=== PATIENT | female | born 1965 ===

== ENCOUNTER 2017-01-02 11:14 | Emergency (ER) | payer MEDICARE ==
--- NOTE | 2017-01-02 14:40 | XRay Report ---
RIGHT KNEE, 2 views: History: Right knee injury. The bony architecture is intact without evidence of fracture or dislocation. No significant soft tissue abnormality is seen. IMPRESSION: Normal right knee.
[2017-01-02] MEDS ORDERED: TYLENOL PO ONE (16:58)
[2017-01-02 17:53] VITALS: BP 129/97
--- NOTE | 2017-01-04 07:32 | Emergency Department Report ---
Entered by JESSICA EVERETT, acting as scribe for NATALI MUSTAFA NP. ED Lower Extremity HPI - General Chief Complaint: Extremity Injury, Lower Stated Complaint: RT KNEE/LEG PAIN Time Seen by Provider: 01/02/17 16:15 Source: patient Mode of arrival: Ambulatory Limitations: No Limitations - History of Present Illness Initial Comments: This is a 51-year-old female nontoxic or ill appearance with no acute signs a distress but complains of right knee pain status post fall that occurred 2 weeks ago. Patient stated was walking down the steps and she tripped and fell on her right knee. Patient describes pain as aching. Denies numbness, tingling, chest pain, shortness of breath, redness, fever or chills. Patient denies any calf tenderness. Patient stated she took [place] 1 last night that relieved her pain. Patient stated ibuprofen does not relieve her pain. Patient allergies include morphine, NSAIDs, and prednisone. MD Complaint: knee injury (right) -: week(s) (2) Injury: Knee: Right Type of Injury: other (impact after a fall) Place: home Severity: mild Severity scale (0 -10): 4 Improves With: other (hydrocodon) Worsens With: weight bearing, movement, palpation Context: fall Associated Symptoms: able to partially bear weight. denies: snap/pop sensation , swelling, numbness, tingling, unable to bear weight - Related Data Previous Rx's Medication Instructions Recorded Last Taken Type Diazepam Tab [Valium] 5 mg PO TID PRN #12 tablet 10/02/15 Unknown Rx Acetaminophen [Acetaminophen ER 650 mg PO Q8HR PRN 7 Days 01/02/17 Unknown Rx TAB] HYDROcodone/APAP 7.5-325 [[place] 1 each PO Q8HR PRN #12 tablet 01/02/17 Unknown Rx 7.5/325] Allergies Allergy/AdvReac Type Severity Reaction Status Date / Time morphine Allergy Shortness Verified 01/02/17 12:41 of Breath NSAIDS (Non-Steroidal Allergy Swelling Verified 10/01/15 22:07 Anti-Inflamma pramipexole di-HCl Allergy Unknown Verified 10/01/15 22:07 [From Mirapex] prednisone Allergy Swelling Verified 10/01/15 22:07 ED Review of Systems Comment: All other systems reviewed and negative Constitutional: denies: chills, fever Respiratory: denies: shortness of breath Cardiovascular: denies: chest pain Gastrointestinal: denies: abdominal pain, nausea, vomiting, diarrhea Musculoskeletal: other (right knee pain) Neurological: denies: headache, weakness, numbness, paresthesias, confusion, abnormal gait, other (tingling) ED Past Medical Hx - Past Medical History Hx Hypertension: Yes Hx Psychiatric Treatment: Yes (anxiety) Additional medical history: Parkinsons - Surgical History Hx Cholecystectomy: Yes Hx Appendectomy: Yes - Social History Smoking Status: Never Smoker Substance Use Type: None - Medications Home Medications: Home Medications Medication Instructions Recorded Confirmed Last Taken Type Diazepam Tab [Valium] 5 mg PO TID PRN #12 tablet 10/02/15 Unknown Rx Acetaminophen [Acetaminophen ER 650 mg PO Q8HR PRN 7 Days 01/02/17 Unknown Rx TAB] HYDROcodone/APAP 7.5-325 [[place] 1 each PO Q8HR PRN #12 tablet 01/02/17 Unknown Rx 7.5/325] ED Physical Exam - General Limitations: No Limitations General appearance: alert, in no apparent distress - Head Head exam: Present: atraumatic, normocephalic - Eye Eye exam: Present: normal appearance, PERRL, EOMI - ENT ENT exam: Present: normal exam, mucous membranes moist, TM's normal bilaterally , normal external ear exam - Neck Neck exam: Present: normal inspection, full ROM. Absent: tenderness, meningismus, lymphadenopathy - Respiratory Respiratory exam: Present: normal lung sounds bilaterally. Absent: respiratory distress - Cardiovascular Cardiovascular Exam: Present: regular rate, normal rhythm, normal heart sounds. Absent: systolic murmur, diastolic murmur, rubs, gallop - GI/Abdominal GI/Abdominal exam: Present: soft, normal bowel sounds. Absent: tenderness, guarding, rebound - Extremities Exam Extremities exam: Present: normal inspection, full ROM, normal capillary refill , joint swelling, other (right knee TTP, full extension of right knee). Absent : pedal edema, calf tenderness - Back Exam Back exam: Present: normal inspection, full ROM. Absent: tenderness, CVA tenderness (R), CVA tenderness (L) - Neurological Exam Neurological exam: Present: alert, oriented X3, CN II-XII intact, normal gait ( with pain) - Psychiatric Psychiatric exam: Present: normal affect, normal mood - Skin Skin exam: Present: warm, normal color. Absent: erythema, other (ulceration or induration) ED Course Vital Signs 01/02/17 12:42 Temperature 98.0 F Pulse Rate 104 H Respiratory 20 Rate Blood Pressure 144/80 O2 Sat by Pulse 100 Oximetry - Reevaluation(s) Reevaluation #1: 01/02/17 17:51 Patient stated has a little relief of pain with a rating of a 7/10. ED Lower Extremity MDM - Medical Decision Making ED course: This is a 51-year-old female that presents with left knee strain 1- after physical exam, patient received acetaminophen 650 mg ED for pain. Patient also requested for knee immobilizer. 2- x-ray was obtained and dictated by Dr. Roberts: Normal right knee. The bony architecture is intact without evidence of fracture or dislocation. No significant soft tissue abnormality is seen. 3- I instructed patient to follow-up with an orthopedic doctor as soon as possible for further testing and possibility of getting an MRI. 4- at the time of discharge patient received acetaminophen 650 mg to take for pain and Guilford 7.5 mg. Patient was instructed to start with acetaminophen and if pain is not relieved me proceed taken [place]. Patient also was instructed not to operate machinery while taken Gu[place] due to sedation. 5- at the time of discharge the patient does not seem toxic or ill in appearance. No signs of distress noted. Patient agrees to discharge treatment plan. No further questions noted by the patient. 6- crutches has been given to the patient and educated by the nurse. ED Disposition Clinical Impression: Strain of knee and leg, left Qualifiers: Encounter type: initial encounter Qualified Code(s): S86.912A - Strain of unspecified muscle(s) and tendon(s) at lower leg level, left leg, initial encounter Disposition: DISCHARGED TO HOME OR SELFCARE Is pt being admited?: No Does the pt Need Aspirin: No Condition: Stable Instructions: Knee Pain (ED), Knee Immobilizer (ED), Crutch Instructions (ED) Additional Instructions: Follow-up with an orthopedic doctor as soon as possible for further testing such as an MRI. If symptoms worsen such as calf pain or tenderness, redness, fever, chills, swelling to the extremity before back to emergency room as soon as possible. Follow-up with your primary care doctor in 3-5 days. Take acetaminophen as prescribed as needed. He may take [place] as prescribed as needed if acetaminophen doesn't relief his symptoms of pain. Do not operate heavy machinery while taking [place] due to sedation. Prescriptions: Acetaminophen [Acetaminophen ER TAB] 650 mg PO Q8HR PRN 7 Days PRN Reason: Pain HYDROcodone/APAP 7.5-325 [[place] 7.5/325] 1 each PO Q8HR PRN #12 tablet PRN Reason: Pain Referrals: [facility] [Outside] - 3-5 Days [facility] [Outside] - 3-5 Days PRIMARY CARE, [Primary Care Provider] - 3-5 Days ANASTASIA TAN MD [Staff Physician] - 24 Hours Forms: Work/School Release Form(ED) This documentation as recorded by the MARGUERITE cabrera RYAN,accurately reflects the service I personally performed and the decisions made by me,NATALI MUSTAFA NP.
== END 2017-01-02 18:28 | disposition home or self-care (01) ==
LOC: ED 11:14
DX: S86.912A Strain of unspecified muscle(s) and tendon(s) at lower leg level, left leg, initial encounter (principal); M25.561 Pain in right knee; I10 Essential (primary) hypertension; F41.9 Anxiety disorder, unspecified; W18.30XA Fall on same level, unspecified, initial encounter; Y93.9 Activity, unspecified; Y92.9 Unspecified place or not applicable; Y99.9 Unspecified external cause status

== ENCOUNTER 2017-09-29 09:11 | Emergency (ER) | payer MEDICARE ==
[2017-09-29 09:35] VITALS: BP 111/75
--- NOTE | 2017-09-29 11:35 | XRay Report ---
LEFT TIBIA AND FIBULA TWO VIEWS: 09/29/17 09:11:00 CLINICAL: Pain. FINDINGS: No fracture or dislocation. Marked medial and lateral soft tissue swelling ankle.No soft tissue air or foreign body. IMPRESSION: Nonspecific soft tissue swelling at the ankle.
--- NOTE | 2017-09-29 12:46 | Emergency Department Report ---
ED General Adult HPI - General Chief complaint: Fall Stated complaint: LEFT LEG PAIN/FALL Time Seen by Provider: 09/29/17 12:19 Source: patient, EMS Mode of arrival: Wheelchair Limitations: No Limitations - History of Present Illness Initial comments: Patient is a 52-year-old female past mental history of fibromyalgia and multiple sclerosis chronic pain who presents with left knee pain. Patient's left knee pain has been going on for the past 3 days. Patient states that she fell from her chair and fell on her left knee she didn't hurt any other part of her body. She states that the knee pain is an 8 out of 10 moving it makes it worse nothing makes it better. Patient is requesting pain medication for her knee she states that she could still move but she came in today because the pain is still there. No bleeding no deformity to the knee. Severity scale (0 -10): 5 - Related Data Previous Rx's Medication Instructions Recorded Last Taken Type Diazepam Tab [Valium] 5 mg PO TID PRN #12 tablet 10/02/15 Unknown Rx Acetaminophen [Acetaminophen ER 650 mg PO Q8HR PRN 7 Days 01/02/17 Unknown Rx TAB] tablet.er HYDROcodone/APAP 7.5-325 [[place] 1 each PO Q8HR PRN #12 tablet 01/02/17 Unknown Rx 7.5/325] Acetaminophen 500 mg PO Q6H #30 tablet 09/29/17 Unknown Rx Allergies Allergy/AdvReac Type Severity Reaction Status Date / Time ciprofloxacin [From Cipro] Allergy Unknown Verified 09/29/17 09:32 fluticasone [From Flonase] Allergy Unknown Verified 09/29/17 09:32 levodopa Allergy Unknown Verified 09/29/17 09:32 morphine Allergy Shortness Verified 01/02/17 12:41 of Breath NSAIDS (Non-Steroidal Allergy Swelling Verified 10/01/15 22:07 Anti-Inflamma pramipexole [From Mirapex] Allergy Unknown Verified 09/29/17 09:32 pramipexole di-HCl Allergy Unknown Verified 10/01/15 22:07 [From Mirapex] prednisone Allergy Swelling Verified 10/01/15 22:07 carvadopa Allergy Unknown Uncoded 09/29/17 09:32 steriods Allergy Unknown Uncoded 09/29/17 09:32 ED Review of Systems ROS: Stated complaint: LEFT LEG PAIN/FALL Other details as noted in HPI Constitutional: denies: chills, fever Eyes: denies: eye pain, eye discharge, vision change ENT: denies: ear pain, throat pain Respiratory: denies: cough, shortness of breath, wheezing Cardiovascular: denies: chest pain, palpitations Endocrine: no symptoms reported Gastrointestinal: denies: abdominal pain, nausea, diarrhea Genitourinary: denies: urgency, dysuria, discharge Musculoskeletal: arthralgia. denies: back pain, joint swelling Skin: denies: rash, lesions Neurological: denies: headache, weakness, paresthesias Psychiatric: denies: anxiety, depression Hematological/Lymphatic: denies: easy bleeding, easy bruising ED Past Medical Hx - Past Medical History Previous Medical History?: Yes Hx Hypertension: Yes Hx Psychiatric Treatment: Yes (anxiety) Additional medical history: Parkinsons - Surgical History Past Surgical History?: Yes Hx Cholecystectomy: Yes Hx Appendectomy: Yes - Social History Smoking Status: Never Smoker Substance Use Type: Alcohol - Medications Home Medications: Home Medications Medication Instructions Recorded Confirmed Last Taken Type Diazepam Tab [Valium] 5 mg PO TID PRN #12 tablet 10/02/15 Unknown Rx Acetaminophen [Acetaminophen ER 650 mg PO Q8HR PRN 7 Days 01/02/17 Unknown Rx TAB] tablet.er HYDROcodone/APAP 7.5-325 [[place] 1 each PO Q8HR PRN #12 tablet 01/02/17 Unknown Rx 7.5/325] Acetaminophen 500 mg PO Q6H #30 tablet 09/29/17 Unknown Rx ED Physical Exam - General Limitations: No Limitations General appearance: alert, in no apparent distress - Head Head exam: Present: atraumatic, normocephalic - Eye Eye exam: Present: normal appearance - ENT ENT exam: Present: mucous membranes moist - Neck Neck exam: Present: normal inspection - Respiratory Respiratory exam: Present: normal lung sounds bilaterally. Absent: respiratory distress - Cardiovascular Cardiovascular Exam: Present: regular rate, normal rhythm. Absent: systolic murmur, diastolic murmur, rubs, gallop - GI/Abdominal GI/Abdominal exam: Present: soft, normal bowel sounds - Extremities Exam Extremities exam: Present: other (left knee bruising good peripheral pulses neurovascularly intact no deformity ) - Back Exam Back exam: Present: normal inspection - Neurological Exam Neurological exam: Present: alert, oriented X3 - Psychiatric Psychiatric exam: Present: normal affect, normal mood - Skin Skin exam: Present: warm, dry, intact, normal color. Absent: rash ED Course Vital Signs 09/29/17 09:32 Temperature 98.1 F Pulse Rate 84 Respiratory 20 Rate Blood Pressure 111/75 O2 Sat by Pulse 99 Oximetry ED Medical Decision Making - Radiology Data Radiology results: report reviewed, image reviewed Left knee x-ray: Shows no acute osseous injury - Medical Decision Making Cdx: Occult patellar fracture ddx: Quadriceps Tendon tear, Meniscus tear I will prescribe patient tylenol for home and I will get xray and knee immoblizer of left knee. patient's x-rays unremarkable I will send patient home with outpatient follow- up with primary care provider patient is requesting hydrocodone discussed the patient that she does not have a fracture therefore I cannot prescribe patient had her on. Patient also states that she is allergic to steroids and NSAIDs. I will send patient home with tylenol. Pt agrees with plan and additional verbal discharge instructions were given. Critical care attestation.: If time is entered above; I have spent that time in minutes in the direct care of this critically ill patient, excluding procedure time. ED Disposition Clinical Impression: Left knee pain Qualifiers: Chronicity: acute Qualified Code(s): M25.562 - Pain in left knee Fall Qualifiers: Encounter type: subsequent encounter Qualified Code(s): W19.XXXD - Unspecified fall, subsequent encounter Disposition: TO HOME OR SELFCARE Is pt being admited?: No Does the pt Need Aspirin: No Condition: Stable Instructions: Arthralgia (ED) Prescriptions: Acetaminophen 500 mg PO Q6H #30 tablet Referrals: TOÑO MCCRARY MD [Staff Physician] - 3-5 Days
== END 2017-09-29 12:35 | disposition home or self-care (01) ==
LOC: ED 09:11
DX: M25.562 Pain in left knee (principal)